=== PATIENT | male | born 1975 | race Caucasian/White ===

== ENCOUNTER 2020-11-23 01:41 | Emergency (ER) | payer OTHER ==
[~2020-11-23] VITALS: Ht 177.8 cm; Wt 80.0 kg
[2020-11-23 01:47] VITALS: TEMP 97
[2020-11-23 02:03] LABS: BASO % 0.6 % (0.0-2.0); EOS # 0.1 (0.0-0.7); EOS % 2.6 % (0-4.0); GRAN # 2.9 (1.4-6.5); GRAN % 52.7 % (42.2-75.2); HEMATOCRIT 43.4 % (42.0-52.0); HEMOGLOBIN 14.6 g/dl (13.5-18.0); LYMPH # 1.9 (1.2-3.4); LYMPH % 34.5 % (20.0-51.0); MEAN CELL VOLUME 92 fl (80.0-100.0); MEAN CORPUSCULAR HEMOGLOBIN 31 pg (27.0-31.0); MEAN CORPUSCULAR HGB CONC 34 g/dl (33.0-37.0); MEAN PLATELET VOLUME 9.6 fl (7.4-10.4); MONO # 0.5 (0.1-0.6); MONO % 9.4 % (1.7-9.3); PLATELET COUNT 184 K/mm3 (130-400); RED BLOOD COUNT 4.71 M/mm3 (4.20-5.60); REDCELL DISTRIBUTION WIDTH-CV 12.1 % (11.5-14.5)
[2020-11-23 02:15] LABS: BILIRUBIN,TOTAL 0.5 mg/dL (0.0-1.0); CALCIUM 9.5 mg/dL (8.4-10.2); CREATININE, serum 0.92 (0.66-1.25); POTASSIUM 3.8 mmol/L (3.4-5.0); TOTAL PROTEIN 6.4 gm/dL (6.4-8.2)
[2020-11-23 03:12] LABS: MUCOUS Present /lpf; PH 5 (5-8); SQUAMOUS EPITHELIAL 0-2 /hpf; URINE APPEARANCE Hazy; URINE BACTERIA None Seen /hpf; URINE BILIRUBIN Negative (NEGATIVE); URINE BLOOD 3+ (NEGATIVE); URINE COLOR Yellow; URINE GLUCOSE Negative (NEGATIVE); URINE KETONE Negative (NEGATIVE); URINE LEUKOCYTE ESTERASE Negative (NEGATIVE); URINE NITRATE Negative (NEGATIVE); URINE PROTEIN(semi-quant) Negative (NEGATIVE); URINE RBC >50 /hpf; URINE UROBILINOGEN Negative (NEGATIVE)
[2020-11-23 03:21] LABS: COLLECTION METHOD CLEAN CATCH
[2020-11-23] MEDS ORDERED: PERCOCET 325 MG1 TA2 PO (04:43)
[2020-11-23] MEDS ORDERED: ZOFRAN ODT4 MG PO (04:43)
[2020-11-23 05:10] VITALS: BP 158/90; PULSE 78
== END 2020-11-23 05:10 | disposition home or self-care (01) ==
LOC: COL.ER 01:41
PROVIDERS: Emergency Medicine
DX: N13.2 Hydronephrosis with renal and ureteral calculous obstruction (principal); I10 Essential (primary) hypertension
CPT/HCPCS: J1885; J2270; J2405; J7030; Q9967

== ENCOUNTER 2022-08-04 08:25 | Day surgery (SDC) | payer OTHER ==
[~2022-08-04] VITALS: Ht 177.8 cm; Wt 82.5 kg
[~2022-08-04 08:25] MED LIST: PERCOCET 325 MG1 TA2 PO; ZOFRAN ODT4 MG PO
[2022-08-04] MEDS ORDERED: QBRELIS1 MG/1 ML PO (08:50)
[2022-08-04] MEDS ORDERED: LIPITOR20 MG PO (08:51)
[2022-08-04 08:55] VITALS: BP 130/90; PULSE 83; TEMP 98
[2022-08-04 10:30] VITALS: BP 144/98; PULSE 75; TEMP 97.6
[2022-08-04 10:45] VITALS: BP 147/98; PULSE 73
[2022-08-04 11:00] VITALS: BP 116/85; PULSE 72; TEMP 97
--- NOTE | 2022-08-04 11:15 | NUR ---
1030 RECEIVED POST PROCEDURE REPORT FROM YURI PARDO. PT ALERT AND ABLE TO AMBULATE FROM CART TO RECLINER. DR. PRAJAPATI IN TO UPDATE PT AND HIS ON PROCEDURE RESULTS AND DISCHARGE PLANS 1045 PT GIVEN JUICE AND TOAST. TOLERATED WELL 1112 PT DISCHARGE INSTRUCTIONS AND EDUCATIONAL MATERIALS REVIEWED W/ PT AND HIS . QUESTIONS INVITED AND ANSWERED. PT VERBALIZED UNDERSTANDING 1115 PT TO LOBBY VIA WHEEL CHAIR FOR RIDE HOME WITH VIA POV.
== END 2022-08-04 11:15 | disposition home or self-care (01) ==
LOC: SDCO 08:25
DX: Z12.11 Encounter for screening for malignant neoplasm of colon (principal); D12.0 Benign neoplasm of cecum; K57.30 Diverticulosis of large intestine without perforation or abscess without bleeding; I10 Essential (primary) hypertension; Z79.899 Other long term (current) drug therapy
CPT/HCPCS: J2704; J3010; J7120